=== PATIENT | female | born 1950 | race Caucasian/White ===

== ENCOUNTER 2021-04-28 11:14 | Emergency (ER) | payer MEDICARE, OTHER ==
[2021-04-28 11:37] VITALS: BP 146/88; PULSE 61; RESP 16; TEMP 97.8
--- NOTE | 2021-04-28 12:05 | ED ---
General Adult HPI - General Chief complaint: Eye Problems Stated complaint: post op eye surgery issue Time Seen by Provider: 04/28/21 11:47 Source: patient Mode of arrival: ambulatory Limitations: no limitations - History of Present Illness Initial comments: Dictation was produced using [employer] dictation software. please excuse any grammatical, word or spelling errors. Chief Complaint: 70-year-old female presents with conjunctival hemorrhage History of Present Illness: And is a 70-year-old female she presents today with left medial conjunctival hemorrhage. She had cataract surgery yesterday. She noticed this morning that there was some bleeding. She was told to go to the emergency department if she noted any bleeding to the surgical site. Patient denies any alterations in vision. She does complain of some mild blurriness however was told to expect that after cataract surgery. Patient has no eye pain. The ROS documented in this emergency department record has been reviewed and confirmed by me. Those systems with pertinent positive or negative responses have been documented in the HPI. All other systems are other negative and/or noncontributory. PHYSICAL EXAM: General Impression: Alert and oriented x3, not in acute distress HEENT: Normocephalic atraumatic, extra-ocular movements intact, pupils equal and reactive to light bilaterally, mucous membranes moist. Ocular: Mild subconjunctival hemorrhage to the medial conjunctival. No hyphema, no pupillary defect Cardiovascular: Heart regular rate and rhythm Chest: Able to complete full sentences, no retractions, no tachypnea Abdomen: abdomen soft, non-tender, non-distended, no organomegaly Musculoskeletal: Pulses present and equal in all extremities, no peripheral edema Motor: no focal deficits noted Neurological: CN II-XII grossly intact, no focal motor or sensory deficits noted Skin: Intact with no visualized rashes Psych: Normal affect and mood ED course: 70-year-old female presents with his subconjunctival hemorrhage status post cataract surgery. Vital signs upon arrival are within acceptable limits. Attempt was made to contact Dr. Uribe patient's primary surgeon however he is not balloon dipper. We did speak with Dr. Kemp who is balloon dipper for the ophthalmology group states that these are normal changes after cataract surgery and its to be expected for 5-7 days. Reassurance is provided to patient. She is told to monitor contact her primary surgeon. Return precautions discussed. Patient is agreeable to plan. - Related Data Allergies Allergy/AdvReac Type Severity Reaction Status Date / Time No Known Allergies Allergy Verified 04/28/21 11:33 Review of Systems ROS Statement: Those systems with pertinent positive or pertinent negative responses have been documented in the HPI. ROS Other: All systems not noted in ROS Statement are negative. Past Medical History Past Medical History: CVA/TIA, Myocardial Infarction ([place]) History of Any Multi-Drug Resistant Organisms: None Reported Past Surgical History: Cholecystectomy, Heart Catheterization With Stent, Orthopedic Surgery Past Psychological History: No Psychological Hx Reported Smoking Status: Never smoker Past Alcohol Use History: None Reported Past Drug Use History: None Reported General Exam Limitations: no limitations Course Vital Signs 04/28/21 11:35 Temperature 97.8 F Pulse Rate 61 Respiratory 16 Rate Blood Pressure 146/88 O2 Sat by Pulse 96 Oximetry Disposition Clinical Impression: Post-op bleeding Disposition: HOME SELF-CARE Instructions (If sedation given, give patient instructions): Cataracts (ED) Is patient prescribed a controlled substance at d/c from ED?: No Referrals: Meir Uribe MD [STAFF PHYSICIAN] - 1-2 days
== END 2021-04-28 12:40 | disposition home or self-care (01) ==
LOC: EC 11:14
DX: H59.312 Postprocedural hemorrhage of left eye and adnexa following an ophthalmic procedure (principal); I25.2 Old myocardial infarction
CPT/HCPCS: 99283